=== PATIENT | male | born 1990 | race Hispanic/Latino ===

== ENCOUNTER 2021-11-05 21:40 | Emergency (ER) | payer SELFPAY ==
--- NOTE | ~2021-11-05 | CT_ITS ---
EXAMINATION: CT brain wo con DATE: 11/05/2021 22:58 INDICATION: numbness to head , pressure behind eyes . TECHNIQUE: Computed tomography (CT) of the head was performed without intravenous contrast. The mA wa s adjusted according to patient size. Iterative reconstruction technique was employed. The dose-lengt h product was 605.33 mGy-cm. COMPARISON: 10/03/2015 FINDINGS: No acute intracranial hemorrhage or extra-axial fluid collection. No hydrocephalus, mass, or herniation. No acute ischemic infarct. Unremarkable dural venous sinus attenuation. No acute osseous abnormality. The aerated spaces are clear. IMPRESSION: No acute intracranial process. Reviewed, dictated and finalized at location K.
--- NOTE | ~2021-11-05 | XR_ITS ---
EXAMINATION: XR chest 2V Exam Date/Time: 11/05/2021 22:50 CDT HISTORY: Left sided chest pain/burning, SOB x few months Comparison: None available. RESULT: Lines, tubes, and devices: None. Lungs and pleura: Clear. Cardiomediastinal silhouette: Normal cardiomediastinal silhouette. Other: No acute osseous or upper abdominal finding. IMPRESSION: No acute cardiopulmonary process. Reviewed, dictated and finalized at location K.
[2021-11-05 21:53] VITALS: BP 138/83; PULSE 94; RESP 14; TEMP 36.6; O2SAT 100
--- NOTE | 2021-11-05 21:58 | ECG_ITS ---
Measurements Intervals [place] Rate: 85 P: 64 MI: 143 QRS: 69 QRSD: 89 T: 53 QT: 379 QTc: 453 Interpretive Statements SINUS RHYTHM RIGHT VENTRICULAR CONDUCTION DELAY Electronically Signed On 11-06-2021 11:12:17 CDT by Pranav Avery M.D.
[2021-11-05 22:30] VITALS: BP 132/88; PULSE 69; RESP 16; O2SAT 98
--- NOTE | 2021-11-05 22:47 | ED.GENADULT ---
HPI - General Adult General Chief complaint: Unspecified <CHAPO Green Last Filed: 11/06/21 02:45> Stated complaint: sharp pains in back of head <CHAPO Green Last Filed: 11/06/21 02:45> Time Seen by Provider: 11/05/21 22:26 <Barbara Stack PA-C - Last Filed: 11/06/21 02:45> History of Present Illness HPI narrative: Patient is a 31-year-old male here for evaluation of multiple medical complaints. Patient states that he has been experiencing intermittent paresthesias to the back of his head for the past month. He states the sensations come randomly, lasting seconds at a time, and began at the top of his head and radiate down his posterior head. Denies associated headache, but does state that his head feels swollen . Denies trauma prior to onset of symptoms or neck pain. Additionally reports that he has had 2 episodes of chest pain over the past two days in the center of his chest described as a sharp sensation, lasting seconds at a time, resolving without intervention. He has been seated when the chest pain comes on. Denies weakness, shortness of breath, visual changes, abdominal pain, nausea, vomiting, fevers, cough. Admits to marijuana use but denies IV drug use. <Barbara Stack PA-C - Last Filed: 11/06/21 02:45> Related Data Allergies/adverse reactions: Allergies Allergy/AdvReac Type Severity Reaction Status Date / Time Penicillins Allergy Mild Unknown Verified 11/05/21 21:57 <Barbara Stack PA-C - Last Filed: 11/06/21 02:45> Review of Systems Review of Systems: Gen: Denies fevers or chills Eyes: Denies eye pain or visual change ENT: Denies congestion Respiratory: Denies shortness of breath or cough CV: Denies chest pain or palpitations GI: Denies abdominal pain nausea, emesis or diarrhea : denies burning, urgency, frequency or hematuria Musculoskeletal: Denies back pain or muscle pain Neuro: Reports numbness and tingling to back of head Skin: Denies rash Except as documented, all other systems reviewed and negative <Barbara Stack PA-C - Last Filed: 11/06/21 02:45> Exam Narrative: APPEARANCE: Well appearing, no pain in distress, well-nourished. Head: normocephalic and atraumatic. EYES: PERRLA/EOMI, conjunctivae clear NOSE: No nasal drainage EARS: External ear normal in appearance THROAT: Oropharynx is clear. Mucous membranes are moist. NECK: Supple. No adenopathy, no masses. RESPIRATORY: Airway patent, respirations nonlabored. Clear to auscultation bilaterally, no rales, rhonchi, wheezing. CARDIOVASCULAR: Regular rate and rhythm without murmurs, rubs, or gallops. ABDOMINAL: Normoactive bowel sounds. Soft, nontender, nondistended. No rebound tenderness or guarding. MUSCULOSKELETAL: Spurling's test negative. No midline tenderness along C-spine. Extremities are warm and well-perfused. Moves all extremities well. No edema. NEURO: Cranial nerves II through XII intact. Vmydnw-cr-efws normal. Fifm-ev-lfss normal. Normal speech. No focal neurologic deficits. SKIN: Skin is warm and dry. No rashes. PSYCHIATRIC: Normal affect/mood. <Barbara Stack PA-C - Last Filed: 11/06/21 02:45> Course AOC DIRECTOR COMBAT OPERATIONS OFFICER/PA Physician Supervision I did not see this patient nor was the care plan discussed with me, labs and imaging reviewed I was available for evaluation and consultation, I agree with the documentation <Jesús Burton MD - Last Filed: 11/06/21 02:49> Vital Signs Vital signs: Vital Signs Temperature 36.6 C 11/05/21 21:53 Pulse Rate 94 11/05/21 21:53 Respiratory Rate 14 11/05/21 21:53 Blood Pressure 138/83 11/05/21 21:53 Pulse Oximetry 100 11/05/21 21:53 Oxygen Delivery Room Air 11/05/21 21:53 Temperature 36.6 C 11/05/21 21:53 Pulse Rate 65 11/06/21 00:39 Respiratory Rate 18 11/06/21 00:39 Blood Pressure 130/87 11/06/21 00:39 Pulse Oximetry 98 11/06/21 00:39 Oxygen Delivery Ro
[2021-11-05 23:03] LABS: Basophils Percent Auto 0.3 % (0.2-1.2); Eosinophils Absolute Auto 0.1 K/mm3 (0-0.3); Eosinophils Percent Auto 0.8 % (0-4.4); Hematocrit 42.9 % (42.0-52.0); Hemoglobin 14.2 g/dL (14.0-18.0); Immature Granulocyte Absolute 0.01 K/mm3 (0.00-0.031); Immature Granulocyte Percent A 0.1 % (0-0.5); Lymphocytes Percent Auto 34.3 % (18.3-44.2); Mean Corpuscular HGB Conc 33.1 g/dl (32-36); Mean Corpuscular Hemoglobin 29.1 pg (26-34); Mean Corpuscular Volume 87.9 fl (80-100); Mean Platelet Volume 11.4 fl (7.4-10.4); Monocytes Absolute Auto 0.6 K/mm3 (0.1-0.6); Monocytes Percent Auto 7.8 % (2.6-8.5); Neutrophils Absolute Auto 4.3 K/mm3 (1.3-6.7); Neutrophils Percent Auto 56.7 % (45.5-73.1); Platelet Count Result 197 k/mm3 (150-375); Red Blood Count 4.88 M/mm3 (4.6-6.20); Red Cell Distribution Width 13.5 % (11.5-14.5); White Blood Count 7.6 K/mm3 (4.5-10.0)
--- NOTE | 2021-11-05 23:10 | PC.NURSE ---
Report received from Silvano STAPLES and care of pt assumed at this time.
[2021-11-05 23:11] VITALS: BP 130/85; PULSE 65; RESP 16; O2SAT 98
[2021-11-05 23:19] LABS: Alanine Aminotransferase 22 U/L (6-50); Albumin Level 4.8 g/dL (3.5-5.1); Alkaline Phosphatase 84 U/L (38-126); Anion Gap 5 mmol/L (8-16); Aspartate Amino Transferase 27 U/L (17-59); Bilirubin,Total 0.4 mg/dL (0.2-1.3); Blood Urea Nitrogen 14 mg/dL (9-20); Calcium 9.4 mg/dL (8.4-10.2); Carbon Dioxide 31 mmol/L (22-30); Chloride 103 mmol/L (98-107); Estimated CRCL calculation 86 ml/min; Estimated Glomerular Filt Rate > 60; Glucose 106 mg/dL (65-110); Potassium 4.1 mmol/L (3.4-5.0); Sodium 139 mmol/L (137-145)
[2021-11-05 23:30] LABS: Troponin I < 0.012 ng/mL (0.000-0.034)
[2021-11-06 00:39] VITALS: BP 130/87; PULSE 65; RESP 18; O2SAT 98
== END 2021-11-06 00:40 | disposition home or self-care (01) ==
PROVIDERS: Physician Assistant; Emergency Provider Emergency Medicine
DX: R07.89 Other chest pain (principal)
CPT/HCPCS: 36415; 70450; 71046; 80053; 84484; 85025; 93005; 99284

== ENCOUNTER 2024-08-17 18:07 | Emergency (ER) | payer SELFPAY ==
--- NOTE | ~2024-08-17 | XR_ITS ---
HISTORY: injury, fall, lateral ankle pain COMPARISON: None TECHNIQUE: 3 views of the right ankle were performed FINDINGS: No acute fracture or dislocation. No significant soft tissue swelling. The ankle mortise is preserved. Bone mineralization is age-appropriate. IMPRESSION: No acute fracture or dislocation. Reviewed, dictated and finalized at location A.
--- NOTE | 2024-08-17 18:14 | ED.LOWEXIN ---
HPI - Extremity Injury (Lower) General Chief Complaint: Extremity Injury, Lower Stated Complaint: right ankle injury Time Seen by Provider: 08/17/24 18:52 Source: patient and RN notes reviewed Mode of arrival: ambulatory Limitations: no limitations History of Present Illness HPI Narrative: 34-year-old male presents with concern for right ankle pain. He reports last night he rolled his ankle and he is having lateral swelling and pain. Reports little pain with rest, pain with weight-bearing. He denies decreased strength, sensation, range of motion. He has taken Tylenol and is using crutches complaint: ankle injury Related Data Home Medications ?Medication ?Instructions ?Recorded ?Confirmed ?Last Taken ?Type No Home Medications 08/17/24 08/17/24 Unknown History Allergies Allergy/AdvReac Type Severity Reaction Status Date / Time Penicillins Allergy Mild Unknown Verified 08/17/24 18:11 Review of Systems Review of Systems: CONSTITUTIONAL: Denies malaise, chills, sweats, or fever. SKIN: Denies rash or itching, open skin, laceration, abrasion, redness, warmth MUSCULOSKELETAL: Reports right ankle pain and swelling NEUROLOGIC: Denies numbness, weakness All systems reviewed & are unremarkable except as noted in HPI and below PMFSH Comments At time of signature, agree with nursing past medical, surgical, social and family history. There is no relevant family history pertinent to the presenting complaint Exam Narrative: GENERAL: Well-appearing, well-nourished, and in no acute distress. HEAD: Normocephalic, atraumatic. EYES: PERRLA, conjunctivae clear NECK: Supple. CHEST: Speaks in full sentences. No respiratory distress. HEART: Regular rate and rhythm. Normal and equal peripheral pulses. EXTREMITIES: Right ankle, foot, digits have grossly normal strength and sensation, grossly normal range of motion. Mild lateral edema and ecchymosis. 5/5 strength with ankle and digit flexion and extension. Normal sensation with sensitivity to light touch and pain. Lateral tenderness. No open wounds, no skin tenting, no devitalized tissue or atrophy, no trophic changes, no obvious deformity, alignment normal, nearby joints and structures intact. Distal pulses palpable and equal bilaterally, skin warm, dry, pink. Capillary refill less than 3 seconds. SKIN: Warm, dry, no rash. NEURO: Alert and oriented x3. PSYCH: Normal mood and affect Course Course Emergency Course: Patient is aware of diagnosis, understands and agrees to treatment plan. Anticipatory guidance given. Patient agrees to follow-up as directed and is aware of reasons to seek care at the emergency department. Portions of this record may have been created with voice recognition software Level of Care: Express Care Visit Vital Signs Vital signs: Reviewed. MDM - Extremity Injury (Lower) MDM Narrative Medical decision making narrative: Patients injury and pain is consistent with musculoskeletal etiology. No signs of neurological or vascular compromise on exam. Compartments and tissues are soft without signs of compartment syndrome. Pain is felt appropriate for further evaluation on an outpatient basis. Imaging Data My impression: Images reviewed, interpreted by radiologist, agree, see report. Radiologist's impression: HISTORY: injury, fall, lateral ankle pain COMPARISON: None TECHNIQUE: 3 views of the right ankle were performed FINDINGS: No acute fracture or dislocation. No significant soft tissue swelling. The ankle mortise is preserved. Bone mineralization is age-appropriate. IMPRESSION: No acute fracture or dislocation. Critical Care Time Critical Care Time Critical Care Time: No Discharge Plan Discharge Clinical Impression: Ankle sprain and strain Patient Disposition: Home, Self-Care Condition: Stable Instructions: Ankle Sprain (ED) Additional Instructions: Your x-ray is normal Avoid activities that cause pain until the pain subsides. Ice to the area 20-30 minutes 4-6 times a day Elevate above heart Elastic wrap as directed for comfort for the next 5-7 days Crutches as directed if needed Tylenol for lesser pain Ibuprofen regularly for the next 2-3 days for the inflammation Follow up with your primary care provider if the condition is not improving within 1 week. If the condition worsens with numbness, tingling, decrease sensation with weakness seek treatment in the emergency room immediately. Patient Language: [place] Prescriptions: No Action No Home Medications Follow-up/Referrals: PHYSICIAN,DATA ENTRY ANALYST [Primary Care Provider] - Stand Alone Forms: Work/School Release IP Time of Disposition: 19:21
[2024-08-17 18:19] VITALS: BP 130/84; PULSE 82; RESP 14; TEMP 36.9; O2SAT 100
== END 2024-08-17 19:25 | disposition home or self-care (01) ==
PROVIDERS: Emergency Provider Nurse Practitioner
DX: S93.401A Sprain of unspecified ligament of right ankle, initial encounter (principal); S96.911A Strain of unspecified muscle and tendon at ankle and foot level, right foot, initial encounter; X50.9XXA Other and unspecified overexertion or strenuous movements or postures, initial encounter
CPT/HCPCS: 73610; 99213; G0463